=== PATIENT | male | born 1950 | race American Indian/Alaskan Native ===

== ENCOUNTER 2016-07-07 10:59 | Emergency (ER) | payer MEDICARE ==
--- NOTE | 2016-07-07 12:02 | XRay Report ---
CHEST 2 VIEWS INDICATION: Dizziness, elevated blood pressure. COMPARISON: None similar at this institution. FINDINGS: PA and lateral chest radiographs demonstrate normal cardiomediastinal silhouette. Biapical scarring or pleural thickening. Clear, slightly hyperexpanded lungs. Intact bones. Lateral view somewhat limited due to motion artifact. CONCLUSION: No acute disease in the chest. Thank you for the opportunity to participate in this patient's care.
[2016-07-07 12:15] LABS: Hematocrit 41.8 % (35.5-45.6); Hemoglobin 13.3 gm/dl (11.8-15.2); Mean Corpuscular HGB Conc 32 % (32-34); Mean Corpuscular Hemoglobin 27 pg (28-32); Mean Corpuscular Volume 83 fl (84-94); Platelet Count 237 K/mm3 (140-440); Red Blood Count 5.04 M/mm3 (3.65-5.03); Red Cell Distribution Width 15.1 % (13.2-15.2); White Blood Count 6.3 K/mm3 (4.5-11.0)
[2016-07-07 12:21] LABS: Bilirubin,Urine NEG (Negative); Blood,Urine MOD (Negative); Ketones,Urine NEG (Negative); Leukocyte Esterase,Urine NEG (Negative); Mucus,Urine FEW /HPF; Nitrite,Urine NEG (Negative); Protein,Urine <15 mg/dL mg/dL (Negative); Urobilinogen,Urine < 2.0 mg/dL (<2.0)
[2016-07-07 12:22] LABS: WBC,Urine < 1.0 /HPF (0.0-6.0)
[2016-07-07 12:54] LABS: Alanine Aminotransferase 15 units/L (7-56); Albumin 4.3 g/dL (3.9-5); Albumin/Globulin Ratio 1.4 %; Alkaline Phosphatase 78 units/L (35-129); Anion Gap 18 mmol/L; BUN/Creatinine Ratio 7.27; Bilirubin,Total 0.5 mg/dL (0.1-1.2); Blood Urea Nitrogen 8 mg/dL (9-20); Calcium 9.4 mg/dL (8.4-10.2); Carbon Dioxide 26 mmol/L (22-30); Chloride 100.7 mmol/L (98-107); Glucose 98 mg/dL (75-100); Potassium 4.4 mmol/L (3.6-5.0); Sodium 140 mmol/L (137-145); Total Protein 7.3 g/dL (6.3-8.2)
[2016-07-07 12:55] LABS: Bilirubin,Direct < 0.2 mg/dL (0-0.2)
--- NOTE | 2016-07-07 23:09 | Emergency Department Report ---
ED General Adult HPI - General Chief complaint: Dizziness Stated complaint: ELEV BP / DIZZINESS Time Seen by Provider: 07/07/16 22:50 Source: patient Mode of arrival: Ambulatory Limitations: No Limitations - History of Present Illness Initial comments: This is a 65-year-old male. He is previously unknown to me. He does not have a primary care doctor currently. He has no chronic medical conditions that he is aware of currently. He presents to the ER complaining of intermittent hypertension and dizziness. He reports that for the past few weeks, he has been going to the local [facility] to check his blood pressure out, andthat it has been elevated. This is causing him to be anxious. He reports that when he gets up rapidly from a sitting position that he feels "dizzy." He does not feel loss of consciousness or syncope, does not feel ataxic. There is no blurry vision or loss of vision, there is no dysarthria, there is no aphasia, there is no ataxia. He does complain of mild frontal headache, which is not sudden or thunderclap in nature, and does not reach maximal intensity within an hour. Headache is intermittent, has been slightly increasing in frequency over the past few weeks. There is no headache currently, there is no neck pain, there is no recent history of chiropractic manipulation. -: Gradual Severity scale (0 -10): 0 Consistency: intermittent Improves with: rest Worsens with: other ( dizziness is associated with getting up rapidly from a sitting position.) Associated Symptoms: denies: confusion, chest pain, cough, diaphoresis, fever/ chills, loss of appetite, malaise, nausea/vomiting, shortness of breath, syncope , weakness - Related Data Home Medications Medication Instructions Recorded Confirmed Last Taken No Known Home Medications [No 07/07/16 07/07/16 Unknown Reported Home Medications] Allergies Allergy/AdvReac Type Severity Reaction Status Date / Time No Known Allergies Allergy Unverified 07/07/16 11:25 ED Review of Systems ROS: Stated complaint: ELEV BP / DIZZINESS Other details as noted in HPI Constitutional: denies: malaise Eyes: other (there is no change in vision. There is no pain with chewing or swallowing food). denies: vision change ENT: denies: epistaxis Respiratory: denies: orthopnea Cardiovascular: denies: chest pain, syncope Gastrointestinal: denies: abdominal pain, nausea, diarrhea Genitourinary: denies: urgency, dysuria Musculoskeletal: denies: back pain, joint swelling, arthralgia Skin: denies: rash, lesions Neurological: headache Psychiatric: denies: anxiety, depression ED Past Medical Hx - Past Medical History Previous Medical History?: No - Surgical History Past Surgical History?: No - Social History Smoking Status: Never Smoker Substance Use Type: None - Medications Home Medications: Home Medications Medication Instructions Recorded Confirmed Last Taken Type No Known Home Medications [No 07/07/16 07/07/16 Unknown History Reported Home Medications] ED Physical Exam - General Limitations: No Limitations General appearance: alert, in no apparent distress - Head Head exam: Present: atraumatic, normocephalic - Eye Eye exam: Present: normal appearance, PERRL, EOMI, other (visual acuity intact to finger counting, color perception, rating at a close distance. No obvious visual field cuts.). Absent: nystagmus - ENT ENT exam: Present: normal exam, normal orophraynx, mucous membranes moist, normal external ear exam - Neck Neck exam: Present: normal inspection, full ROM. Absent: tenderness, meningismus - Respiratory Respiratory exam: Present: normal lung sounds bilaterally. Absent: respiratory distress, wheezes, rales, rhonchi, stridor, chest wall tenderness - Cardiovascular Cardiovascular Exam: Present: regular rate, normal rhythm, normal heart sounds. Absent: bradycardia, tachycardia, irregular rhythm, systolic murmur, diastolic murmur, rubs, gallop - GI/Abdominal GI/Abdominal exam: Present: soft, normal bowel sounds. Absent: distended, tenderness, guarding, rebound, rigid, pulsatile mass - Rectal Rectal exam: Present: deferred - Extremities Exam Extremities exam: Present: normal inspection, full ROM, normal capillary refill. Absent: tenderness, pedal edema, joint swelling, calf tenderness - Back Exam Back exam: Present: normal inspection, full ROM. Absent: tenderness, CVA tenderness (R), CVA tenderness (L), muscle spasm, paraspinal tenderness, vertebral tenderness - Neurological Exam Neurological exam: Present: alert, oriented X3, normal gait (normal tandem gait , normal gait, normal [id number], negative Romberg, negative pronator drift, normal finger to nose), other (Extraocular movements intact. Tongue midline. No facial droop. Facial sensation intact to light touch in the V1, V2, V3 distribution bilaterally. 5 and 5 strength in 4 extremities.. Sensation is intact to light touch in 4 extremities.). Absent: motor sensory deficit - Psychiatric Psychiatric exam: Present: normal affect, normal mood - Skin Skin exam: Present: warm, dry, intact, normal color. Absent: rash ED Course Vital Signs 07/07/16 07/07/16 07/07/16 11:25 22:47 23:35 Temperature 98.3 F 98.0 F Pulse Rate 82 50 L 51 L Respiratory 18 18 18 Rate Blood Pressure 173/112 Blood Pressure 181/102 160/95 [Right] O2 Sat by Pulse 97 100 99 Oximetry 07/07/16 23:36 Temperature Pulse Rate Respiratory Rate Blood Pressure Blood Pressure [Right] O2 Sat by Pulse 99 Oximetry - Reevaluation(s) Reevaluation #1: 07/07/16 23:06 Differential diagnosis: Resolved orthostasis, migraine headache, tension headache, cluster headache, hypertensive associated headache, undiagnosed hypertension Assessment and plan:65-year-old male who has not followed up with a primary care doctor for 3 years, with probable undiagnosed hypertension with a number of nonspecific symptoms. He has a GCS of 15, with an NIH score of 0. He walks with a steady gait. Does not complain of headache or neck pain currently. Symptoms have been present intermittently for the past 2 weeks. History and physical not consistent with transient ischemic attack, syncope or near syncope. Dizziness clinically sounds most consistent with vagal versus orthostatic event. His EKG is morphologically abnormal without prior for comparison, no active chest pain. This can be followed up by an outpatient roller cleaner, active chest pain, shortness of breath and syncope. There is no temporal tenderness, there is no pain with chewing or swallowing food, therefore I think temporal arteritis is very unlikely. We will obtain a noncontrast CT scan of the brain to exclude gross structural abnormalities. Patient is instructed to follow-up with an outpatient primary care doctor for further evaluation and management for his elevated blood pressure. Reevaluation #2: 07/08/16 00:49 Blood pressure is improved. Repeat neurologic exam is unremarkable and unchanged. Noncontrast CT scan of the brain is negative for acute findings. Patient will be discharged with instructions to follow up. ED Medical Decision Making - Lab Data Result diagrams: 07/07/16 11:58 07/07/16 11:58 Vital Signs 07/07/16 07/07/16 11:25 22:47 Temperature 98.3 F 98.0 F Pulse Rate 82 50 L Respiratory 18 18 Rate Blood Pressure 173/112 Blood Pressure 181/102 [Right] O2 Sat by Pulse 97 100 Oximetry Lab Results 07/07/16 07/07/16 07/07/16 Range/Units 11:29 11:58 11:58 WBC 6.3 (4.5-11.0) K/mm3 RBC 5.04 H (3.65-5.03) M/mm3 Hgb 13.3 (11.8-15.2) gm/dl Hct 41.8 (35.5-45.6) % MCV 83 L (84-94) fl MCH 27 L (28-32) pg MCHC 32 (32-34) % RDW 15.1 (13.2-15.2) % Plt Count 237 (140-440) K/mm3 Sodium 140 (137-145) mmol/L Potassium 4.4 (3.6-5.0) mmol/L Chloride 100.7 (98-107) mmol/L Carbon Dioxide 26 (22-30) mmol/L Anion Gap 18 mmol/L BUN 8 L (9-20) mg/dL Creatinine 1.1 (0.8-1.5) mg/dL Estimated GFR > 60 ml/min BUN/Creatinine Ratio 7.27 % Glucose 98 (75-100) mg/dL POC Glucose 91 (70-105) Calcium 9.4 (8.4-10.2) mg/dL Total Bilirubin 0.5 (0.1-1.2) mg/dL Direct Bilirubin < 0.2 (0-0.2) mg/dL AST 23 (5-40) units/L ALT 15 (7-56) units/L Alkaline Phosphatase 78 (35-129) units/L Total Protein 7.3 (6.3-8.2) g/dL Albumin 4.3 (3.9-5) g/dL Albumin/Globulin Ratio 1.4 % Urine Color (Yellow) Urine Turbidity (Clear) Urine pH (5.0-7.0) Ur Specific [place] (1.003-1.030) Urine Protein (Negative) mg/dL Urine Glucose (UA) (Negative) mg/dL Urine Ketones (Negative) mg/dL Urine Blood (Negative) Urine Nitrite (Negative) Urine Bilirubin (Negative) Urine Urobilinogen (<2.0) mg/dL Ur Leukocyte Esterase (Negative) Urine WBC (Auto) (0.0-6.0) /HPF Urine RBC (Auto) (0.0-6.0) /HPF Urine Mucus /HPF 07/07/16 Range/Units Unknown WBC (4.5-11.0) K/mm3 RBC (3.65-5.03) M/mm3 Hgb (11.8-15.2) gm/dl Hct (35.5-45.6) % MCV (84-94) fl MCH (28-32) pg MCHC (32-34) % RDW (13.2-15.2) % Plt Count (140-440) K/mm3 Sodium (137-145) mmol/L Potassium (3.6-5.0) mmol/L Chloride (98-107) mmol/L Carbon Dioxide (22-30) mmol/L Anion Gap mmol/L BUN (9-20) mg/dL Creatinine (0.8-1.5) mg/dL Estimated GFR ml/min BUN/Creatinine Ratio % Glucose (75-100) mg/dL POC Glucose (70-105) Calcium (8.4-10.2) mg/dL Total Bilirubin (0.1-1.2) mg/dL Direct Bilirubin (0-0.2) mg/dL AST (5-40) units/L ALT (7-56) units/L Alkaline Phosphatase (35-129) units/L Total Protein (6.3-8.2) g/dL Albumin (3.9-5) g/dL Albumin/Globulin Ratio % Urine Color Yellow (Yellow) Urine Turbidity Clear (Clear) Urine pH 6.0 (5.0-7.0) Ur Specific [place] 1.010 (1.003-1.030) Urine Protein <15 mg/dl (Negative) mg/dL Urine Glucose (UA) Neg (Negative) mg/dL Urine Ketones Neg (Negative) mg/dL Urine Blood Mod (Negative) Urine Nitrite Neg (Negative) Urine Bilirubin Neg (Negative) Urine Urobilinogen < 2.0 (<2.0) mg/dL Ur Leukocyte Esterase Neg (Negative) Urine WBC (Auto) < 1.0 (0.0-6.0) /HPF Urine RBC (Auto) 5.0 (0.0-6.0) /HPF Urine Mucus Few /HPF - EKG Data When compared to previous EKG there are: previous EKG unavailable 07/07/16 23:09 Normal sinus, borderline left axis deviation, normal intervals, nonspecific T- wave abnormality, not morphologically consistent with STEMI. - Radiology Data Radiology results: report reviewed, image reviewed X-ray the chest is negative Noncontrast CT scan of the brain is negative for acute intracranial process. Critical care attestation.: If time is entered above; I have spent that time in minutes in the direct care of this critically ill patient, excluding procedure time. ED Disposition Clinical Impression: Elevated blood pressure Disposition: DISCHARGED TO HOME OR SELFCARE Is pt being admited?: No Does the pt Need Aspirin: No Condition: Stable Instructions: Hypertension (ED) Additional Instructions: Laboratory studies and physical exam were essentially unremarkable, with the exception of elevated blood pressure. you most likely have a diagnosis of a hypertension/elevated blood pressure, but this formally needs to be made by a primary care doctor. Long-term complications of hypertension/elevated blood pressure include stroke, heart attack, disability, , paralysis, permanent loss of quality of life. In addition, EKG demonstrated nonspecific abnormalities. I recommend that you follow-up with either primary care or cardiology within the next week. Dr. Hutson is a local primary care doctor. Dr. Gypsy Fregoso is a local orientation & mobility specialist. Return to the ER right away with new pain, worsened pain, migration of pain, fevers or chills, intractable nausea or vomiting, inability to tolerate liquid feeds. Referrals: DYLLAN MERRITT MD [Primary Care Provider] - 3-5 Days WENDY GONZALEZ MD [Staff Physician] - 3-5 Days AYSE CASEY MD [Staff Physician] - 3-5 Days
--- NOTE | 2016-07-08 00:31 | Cat Scan Report ---
FINAL REPORT PROCEDURE: CT HEAD/BRAIN WO CON TECHNIQUE: Computerized tomography of the head was performed without contrast material. HISTORY: swanson htn dizzyness COMPARISON: No prior studies are available for comparison. FINDINGS: Skull and scalp: Normal. Paranasal sinuses: Mild opacification of the left ethmoid sinus.. Ventricles and subarachnoid spaces: Normal. Cerebrum: No evidence of hemorrhage, acute infarction or mass. Minimal atrophy is identified.. Cerebellum and brainstem: No evidence of hemorrhage, acute infarction or mass. Vasculature: Normal. Comments: None. IMPRESSION: There is no evidence of an acute intracranial process.
[2016-07-08 01:14] VITALS: BP 148/94
== END 2016-07-08 01:13 | disposition home or self-care (01) ==
LOC: ED 10:59
DX: I10 Essential (primary) hypertension (principal)
CPT/HCPCS: 36415; 70450; 71020; 80048; 80074; 81001; 82962; 85027; 93005; 93010